=== PATIENT | female | born 1975 | race Caucasian/White ===

== ENCOUNTER → 2021-03-20 17:06 | Emergency (ER) | payer SELFPAY ==
[~2021-03-20] VITALS: Ht 157.5 cm; Wt 50.8 kg
[~2021-03-20 17:06] MED LIST: ACETAMINOPHEN 325 MG TAB PO ONE; CARI-277 PO; CYCL-839 PO; DEXL60CA4 PO; DOXY-286 PO; MORP30TA PO; PERCOT PO; PROP60CA34 PO; RANI300C7 PO; SUCR1TAB22 OR; SUM25T PO
[2021-03-20 17:09] VITALS: BP 103/85
== END | disposition left against medical advice (07) ==
LOC: ER 17:06
DX: R51.9 Headache, unspecified (principal); R50.9 Fever, unspecified; R11.2 Nausea with vomiting, unspecified; Z20.822 Contact with and (suspected) exposure to COVID-19; Z53.21 Procedure and treatment not carried out due to patient leaving prior to being seen by health care provider
CPT/HCPCS: 36415; 87426

== ENCOUNTER 2023-11-21 10:29 | Emergency (ER) | payer MEDICAID ==
[~2023-11-21] VITALS: Ht 157.5 cm; Wt 62.0 kg
[~2023-11-21 10:29] MED LIST changes: -ACETAMINOPHEN 325 MG TAB PO ONE; +CHL25C PO; +CLIN1CAP70 PO; +FOLI-119 PO; +PANT40T PO; -SUCR1TAB22 OR; +SUCR1TAB31 OR; +THIA100T5 PO
[2023-11-21 11:00] VITALS: PULSE 133; RESP 24; TEMP 98.5; O2SAT 96
[2023-11-21] MEDS: ONDANSETRON HCL 4 MG/2 ML VIAL IV ONE (11:17)
[2023-11-21] MEDS: LABETALOL HCL 20 MG/4 ML VL IV ONE (11:17)
[2023-11-21] MEDS: SODIUM CHLORIDE 0.9% 1,000 ML IV ONE (11:18)
[2023-11-21 11:29] LABS: Urine Bacteria FEW /hpf (None Seen); Urine Blood Negative /uL (Negative); Urine Clarity Turbid (Clear); Urine Color Light-Orange (Yellow); Urine Hyaline Cast FEW /lpf (0 - 2); Urine Mucus FEW (None Seen); Urine Protein, UAD 1+ (Negative); Urine Specific Gravity 1.035 (1.001-1.035); Urine Urobilinogen 3 mg/dL (Negative); Urine WBC 10 /hpf (0 - 5); Urine pH 5.5 (5.0-9.0)
[2023-11-21 11:43] LABS: Amphetamine Screen, Urine Neg (NEGATIVE); Barbiturate Scree,Urine Neg (NEGATIVE); Benzodiazephine Screen, Urine Neg (NEGATIVE); Cocaine Screen, Urine Neg (NEGATIVE)
[2023-11-21 11:44] LABS: Cannabinoid Screen, Urine Neg (NEGATIVE); Opiate Scree,Urine Neg (NEGATIVE); Phencyclidine Screen, Urine Neg (NEGATIVE)
[2023-11-21 11:47] LABS: Basophils # (auto) 0 10 ^3/uL (0-0.2); Basophils % (auto) 0.5 % (0.0-2.0); Eosinophils # (auto) 0 10 ^3/uL (0-0.8); Eosinophils % (auto) 0.5 % (0.0-7.0); Hematocrit 42.9 % (36.0-46.0); Hemoglobin 14.7 g/dL (12.2-16.2); Lymphocytes % (auto) 10.4 % (10.0-50.0); Mean Corpuscular Hemoglobin 31.8 pg (28.0-32.0); Mean Corpuscular Hgb Conc. 34.2 g/dL (32.0-36.0); Monocytes # (auto) 0.6 10 ^3/uL (0-1.3); Monocytes % (auto) 6.5 % (0.0-12.0); Neutrophils # (auto) 7.5 10 ^3/uL (1.6-8.6); Neutrophils % (auto) 82.1 % (37.0-80.0); Nucleated Red Blood Cells % 0.1 %; Red Blood Cells 4.61 10^6/uL (4.0-5.20); Red Cell Distribution Width 13.8 % (11.8-14.3); White Blood Cell 9.2 10^3/uL (4.4-10.8)
[2023-11-21 12:05] LABS: Alanine Aminotransferase 37 U/L (7-40); Albumin 4.8 g/dL (3.2-4.8); Alkaline Phosphatase 160 U/L (46-116); Anion Gap 10 (5-15); Aspartate Aminotransferase 41 U/L (13-40); BUN/Creatinine Ratio 9.5 (10.0-20.0); Blood Urea Nitrogen 12 mg/dL (9-23); Calcium 11.2 mg/dL (8.7-10.4); Carbon Dioxide 23 mmol/L (20-30); Chloride 101 mmol/L (98-107); Glucose 96 mg/dL (74-106); Lipase 40 U/L (12-53); Potassium 3.4 mmol/L (3.5-5.1); Sodium 134 mmol/L (136-145)
[2023-11-21 12:06] LABS: Bilirubin, Total 1.3 mg/dL (0.2-1.0); Total Protein 8.5 g/dL (5.7-8.2)
[2023-11-21] MEDS: POTASSIUM CHL 20 Meq TABLET PO ONE (16:19)
[2023-11-21] MEDS: cefTRIAXone 1GM/50ML D5W 50 ML IV ONE (16:19)
[2023-11-21] MEDS: PANTOPRAZOLE 40 MG TAB PO ONE (18:29)
[2023-11-21] MEDS: SUCRALFATE 1 GM TAB PO ONE (18:29)
[2023-11-21] MEDS ORDERED: NITR-52 PO (18:35)
[2023-11-21 19:35] VITALS: BP 164/96; RESP 12; O2SAT 97
[2023-11-21 20:00] VITALS: PULSE 92
== END 2023-11-21 20:46 | disposition home or self-care (01) ==
LOC: ER 10:31
DX: K52.9 Noninfective gastroenteritis and colitis, unspecified (principal); N39.0 Urinary tract infection, site not specified; F41.9 Anxiety disorder, unspecified; K21.9 Gastro-esophageal reflux disease without esophagitis; Z79.899 Other long term (current) drug therapy
CPT/HCPCS: 36415; 80053; 80307; 81001; 83605; 83690; 84484; 85025; 93005; 96361; 96365; 96375; 99285; J0696; J2405; J7030